=== PATIENT | female | born 1940 | race Hispanic/Latino ===

== ENCOUNTER 2017-02-15 20:44 | Inpatient (IN) | payer MEDICARE, MEDICAID ==
[2017-02-15 21:53] LABS: #Basophils 0.1 thou/uL (0.0-0.2); #Eosinphils 0.1 thou/uL (0.0-0.7); #Lymphocytes 1.3 thou/uL (1.20-3.40); #Monocytes 0.6 thou/uL (0.11-0.59); #Neutrophils 7.5 thou/uL (1.40-6.50); %Basophils 0.6 % (0.0-1.0); %Eosinophils 1.5 % (0.0-10.0); %Monocytes 6.1 % (0.0-10.0); Hematocrit 44.4 % (36.0-47.0); Mean Platelet Volume 6.4 fL (7.4-10.4); Red Blood Cell (RBC) Count 4.88 mill/uL (4.20-5.40); White Blood Cell (WBC) Count 9.6 thou/uL (4.8-10.8)
[2017-02-15 22:15] LABS: ALT (SGPT) 13 U/L (8-55); AST (SGOT) 19 U/L (5-34); Alkaline Phosphatase 85 U/L (40-150); Anion Gap 12 mmol/L (10-20); BUN (Urea Nitrogen) 18 mg/dL (9.8-20.1); Bilirubin, Total 0.5 mg/dL (0.2-1.2); Calc. Creatinine Clearance 0 mL/min (70-130); Calcium 9.4 mg/dL (7.8-10.44); Carbon Dioxide 28 mmol/L (23-31); Chloride 98 mmol/L (98-107); Estimated GFR-MDRD 66; Globulin 3.9 g/dL (2.4-3.5); Protein, Total 7.7 g/dL (6.0-8.3)
[2017-02-15] MEDS ORDERED: Adenosine 6 MG/2 ML VIAL ONE ×2 (22:18→22:24)
[2017-02-15 22:21] LABS: Troponin I 0.043 ng/mL (< 0.028)
[2017-02-15 23:04] LABS: Magnesium 2.8 mg/dL (1.6-2.6)
--- NOTE | 2017-02-15 23:06 | RAD ---
PORTABLE AP CHEST: Date: 02-15-17 History: Dyspnea. Patient fell out of bed. Patient reports shortness of breath. Comparison: 12-29-16 FINDINGS: Post-surgical changes related to CABG are noted. Cardiac silhouette is stable in size. Pulmonary vas culature is within normal limits. Lungs are clear. There is osteopenia. No obvious fracture is seen. Vascular calcification seen in the thoracic aorta. There has been no interval change from prior alonso dy. IMPRESSION: No acute cardiopulmonary process. POS: [facility]
[2017-02-16] MEDS ORDERED: Acetaminophen 325 MG TAB PO PRN (01:02)
[2017-02-16] MEDS ORDERED: Ondansetron HCl/PF 4 MG/2 ML Vial IVP PRN (01:02)
[2017-02-16] MEDS ORDERED: Ondansetron ODT 4 MG TAB SL PRN (01:02)
[2017-02-16 01:10] LABS: Troponin I 0.041 ng/mL (< 0.028)
[2017-02-16 04:47] VITALS: BMI 28.5
[2017-02-16 05:17] LABS: Troponin I 0.042 ng/mL (< 0.028)
[2017-02-16] MEDS: Lisinopril 2.5 MG TAB PO SCH (06:28)
[2017-02-16] MEDS ORDERED: Dextrose 5% in Water 1,000 ML IV PRN (07:44)
[2017-02-16] MEDS ORDERED: Dextrose 50% Abboject 50 ML SYRINGE IVP PRN (07:44)
[2017-02-16] MEDS: cloNIDine HCl 0.1 MG TAB PO PRN ×2 (08:01→21:56)
[2017-02-16] MEDS ORDERED: Aspirin 325 MG TAB PO SCH (09:00)
[2017-02-16] MEDS ORDERED: Fluticasone Propionate Nasal Spray 16 gm Bottle NASAL PRN (09:21)
--- NOTE | 2017-02-16 11:33 | CON ---
DATE OF CONSULTATION: 02/16/2017 HISTORY: The patient is a pleasant 76-year-old woman with a history of coronary bypass surgery who presents after she had a fall. The patient was seen in 2014. She underwent cardiac catheterization and was found to have severe three-vessel coronary artery disease. The patient subsequently underwent coronary bypass surgery x3. The patient states that she has been compliant with her medications. She was in her usual state of health when she fell. She did not lose consciousness. The patient presented to the emergency room and was noted be in a very rapid heart rate. The patient denied having any palpitations or chest discomfort. The patient denies having dyspnea on exertion, PND or orthopnea. The patient denies having any palpitations. PAST MEDICAL HISTORY: 1. Coronary artery disease. 2. Hypertension. 3. Diabetes mellitus. 4. Dyslipidemia. PAST SURGICAL HISTORY: Coronary bypass surgery, foot surgery, and hysterectomy. FAMILY HISTORY: Her father had a myocardial infarction. MEDICATIONS ON ADMISSION: Metformin 1000 b.i.d., metoprolol 25 b.i.d., lisinopril 2.5 daily, Lipitor 10 at bedtime, aspirin 325 daily, Norvasc 10 daily. SOCIAL HISTORY: The patient continues to abuse tobacco 1 pack per day. REVIEW OF SYSTEMS: Ten-point system otherwise unremarkable. No history of easy bruising or bleeding, bright red blood per rectum, hematuria, dysuria, constipation, diarrhea. The patient reports having myalgias. Ten point review of systems is unremarkable. PHYSICAL EXAMINATION: GENERAL: Obese woman in no acute distress. VITAL SIGNS: Blood pressure of 130/60. NECK: No jugular venous distention. LUNGS: Clear to auscultation. HEART: Regular rate and rhythm, normal S1, S2. ABDOMEN: Distended. EXTREMITIES: Showed trace edema. SKIN: Warm and dry. NEUROLOGIC: Nonfocal. VASCULAR: Radial pulses are 2+. LABORATORY RESULTS: White blood cell count 9.6, hemoglobin 14.5, hematocrit 44.4, platelets 324. Sodium is 134, potassium 3.9, chloride 98, bicarbonate 28 , BUN 18, creatinine 0.84, glucose 173, troponin 0.043. Her EKG revealed her to have supraventricular tachycardia, nonspecific ST abnormality. IMPRESSION: 1. Supraventricular tachycardia. 2. History of coronary bypass surgery. 3. Hypertension. 4. Diabetes mellitus. 5. Dyslipidemia. This patient presents with supraventricular tachycardia. She converted to normal sinus rhythm with IV Cardizem. The patient also reports having marked weakness from muscle discomfort. With the patient having myalgias I would discontinue her Lipitor. We will ask EP to evaluate. We will follow this patient with you through her hospitalization. DARSHANA
[2017-02-16] MEDS ORDERED: Regadenoson 0.4 MG/5 ML SYRINGE ONE (12:00)
[2017-02-16] MEDS ORDERED: Albuterol Sulfate 2.5 mg/3 ml Neb NEB PRN (17:53)
--- NOTE | 2017-02-16 17:59 | NM ---
NUCLEAR MEDICINE CARDIAC STRESS TEST WITH EJECTION FRACTION: HISTORY: Chest pain and arrhythmia. COMPARISON: None. TECHNIQUE: Stress and rest was performed after the intravenous administration of 29 and 9 mCi technetium-99m se stamibi intravenously, respectively. FINDINGS: There is a scar of the lateral wall. The contractility appears normal. No dyskinesia or akinesia. Th e ejection fraction is calculated at 52%. No evidence of reversible ischemia. IMPRESSION: 1. Lateral wall scar without reversible ischemia. 2. Ejection fraction 52%. POS: [facility]
[2017-02-16] MEDS: Insulin Regular 300 UNITS/3 ML VIAL SC PRN (18:07)
[2017-02-16] MEDS ORDERED: Atorvastatin Calcium 40 MG TAB PO SCH (21:00)
[2017-02-16] MEDS: Guaifenesin DM 100-10/5 ML UDCUP PO SCH (21:54)
[2017-02-16] MEDS: guaiFENesin ER 600 MG TAB PO SCH (21:54)
--- NOTE | 2017-02-17 00:40 | HP ---
DATE OF ADMISSION: 02/15/2017 REASON FOR CHIEF COMPLAINT: Status post fall. HISTORY OF PRESENT ILLNESS: Ms. Brar is a 76-year-old female with past medical histor y of coronary artery disease, status post CABG, hypertension and diabetes mellitus who lost balance and fell off the bed and sustained skin tears to the right forearm. No loss of consciousness, no ch est pain, no shortness of breath. The patient came to the emergency room because of this. She was evaluated and had SVT in the ER, which resolved, but came back again and resolved with Valsalva bhupinder uver. The patient also found to have an elevated blood pressure and she also complained of shortnes s of breath and uses an albuterol inhaler, which she left at home. Her troponin was indeterminate. The patient is being admitted because of her SVT. The patient did not have any palpitations. PAST MEDICAL HISTORY: 1. Coronary artery disease, status post CABG. 2. Hypertension. 3. Diabetes mellitus. 4. Hyperlipidemia. 5. Bronchial asthma. PAST SURGICAL HISTORY: Status post CABG, status post foot surgery, status post hysterectomy. CURRENT MEDICATIONS: The patient is on metformin 1000 b.i.d., metoprolol 25 b.i.d., lisinopril 2.5 mg daily, Lipitor 10 mg at bedtime, aspirin 325 mg daily, Norvasc 10 mg daily. ALLERGIES: NKDA. FAMILY HISTORY: Nothing of interest. SOCIAL HISTORY: Patient lives with her family. No history of alcohol intake. Smokes one pack a da y. REVIEW OF SYSTEMS: Cardiovascular: No chest pain. No shortness of breath. Respiratory: No fever or cough. Gastrointestinal: No nausea or vomiting. No abdominal pain. Genitourinary: No disten essence. Central Nervous System: No headache, no dizziness. PHYSICAL EXAMINATION: GENERAL: The patient is alert, awake and oriented x3. VITAL SIGNS: Temperature 98, pulse 83, respirations 24 and blood pressure 180/70. HEENT: Head is normocephalic, atraumatic. Pupils equal and reactive. Nasopharynx is pink and mois t. NECK: Supple. No JVD. LUNGS: Bilateral air entry. Breath sounds diminished bilaterally. Percussion is dull bilaterally. No rales. HEART: S1, S2 regular. ABDOMEN: Soft. No distention, no tenderness. Normal bowel sounds. RECTAL: Deferred. EXTREMITIES: Marked skin tear is present in the right forearm. CENTRAL NERVOUS SYSTEM: No focal deficits. LABORATORY AND X-RAY FINDINGS: CBC shows WBC 9.7, hemoglobin 14, hematocrit 44 and platelets 394. Metabolic panel: Sodium 134, potassium 3.9, chloride 98, CO2 of 28, urea nitrogen 18, creatinine 0. 9, glucose 117, CK-MB , troponin 0.043, magnesium level 2.8. Chest x-ray negative. EKG showed SVT with a heart rate of 150. No acute ST-T changes seen. ASSESSMENT: 1. Supraventricular tachycardia. 2. Status post fall. 3. Laceration in the right forearm. 4. Hypertension, uncontrolled. 5. Diabetes mellitus. 6. Coronary artery disease, status post coronary artery bypass grafting. PLAN: 1. Vital signs q.4 hours. 2. Activity: As tolerated. 3. Allergies: NKDA. 4. Hep-lock. 5. Diet: ADA cardiac. 6. CK-MB and troponin I q.8 hours x2. 7. Continue home medication. 8. Echocardiogram. 9. Cardiology consult. 10. Accu-Cheks a.c. and at bedtime. 11. Sliding scale mild with regular insulin. 12. Wound cleaning and dressing, right forearm.
--- NOTE | 2017-02-17 08:42 | PDOC.CTH ---
Cardiology Progress Note - Subjective No new issues or complaints. - Objective Vital Signs Temp Pulse Resp BP BP BP Pulse Ox 02/17/17 08:00 99.2 F 88 20 109/56 L 94 L 02/17/17 04:49 83 22 H 95 02/17/17 04:00 98.5 F 77 18 141/65 H 95 02/17/17 00:00 98.3 F 89 16 154/70 H 94 L 02/16/17 21:56 189/78 H 02/16/17 02/17/17 02/18/17 06:59 06:59 06:59 Intake Total 1135 Output Total 400 Balance 735 - Physical Examination General/Neuro: alert & oriented x3, NAD Neck: no JVD present Lungs: CTA, unlabored respirations Heart: RRR Abdomen: NT/ND Extremities: other: (no edema.) - Telemetry Telemetry Rhythm: NSR - Labs Result Diagrams: 02/15/17 21:45 02/15/17 21:45 Troponin/CKMB CK-MB (CK-2) 1.5 ng/mL (0-6.6) 02/15/17 21:45 Troponin I 0.042 ng/mL (< 0.028) H 02/16/17 04:09 - Assessment/Plan 1. SVT 2. Fall 3. CAD, s/p CABG in 2014 4. Non compliance PLAN: - EP evaluation for SVT - Normal EF on echo at 60-65% - Continue Aspirin, statin, ACEI. - Awaiting EP recs.
[2017-02-17] MEDS ORDERED: Loratadine 10 MG TAB PO SCH (09:00)
[2017-02-17] MEDS: Guaifenesin DM 100-10/5 ML UDCUP PO SCH ×3 (09:17→17:00)
[2017-02-17] MEDS: Lisinopril 2.5 MG TAB PO SCH (09:18)
[2017-02-17] MEDS: guaiFENesin ER 600 MG TAB PO SCH (09:18)
--- NOTE | 2017-02-17 09:26 | PRG ---
DATE OF SERVICE: 02/17/2017 SUBJECTIVE: Ms. Brar continues to do well. Her skin is being bandaged. She underwent a stres s test from yesterday with no evidence of ischemia noted, but a lateral wall scar is seen, EF is 52% . OBJECTIVE DATA: VITAL SIGNS: Blood pressure this morning is 109/56, heart rate 88, respirations 20, temperature 99. 2 degrees Fahrenheit. GENERAL: Alert, oriented, elderly woman in no apparent distress. NECK: Supple. Jugular veins not distended. CHEST: Coarse, no crackles. CARDIOVASCULAR: Heart sounds are regular to rate and rhythm. No murmur or gallop. ABDOMEN: Benign. Bowel sounds positive. EXTREMITIES: Lower extremities without edema, clubbing or cyanosis. DATABASE: The EKG is evaluated reveals sinus rhythm, 4-5 beats run of atrial arrhythmias, SVT is no jose juan only. ASSESSMENT AND PLAN: Ms. Brar is a 76-year-old woman with history of coronary artery disease a nd bypass surgery in the past, hypertension, diabetes, hyperlipidemia. She presented with slip and subsequent tear of her skin on her forearm, but also has episodes of dizzy spells according to her f amily. This is possibly explained by blood pressure fluctuation alone. Accidentally she was noted to be in SVT at rate of 150 beats per minute which responded to vagal maneuvers and diltiazem. I discussed the option of an ablation therapy for her, but she really prefers medical therapy to be tried first. I will switch her amlodipine to diltiazem. Her blood pressure is well controlled toda y. She has minimal recurrences. She remains stable. I had a discussion with the patient again and her family was present in the room today. We discussed again these options and also emphasized the importance of compliance with medication. If her dizzy spells worsen or she wishes to proceed with the ablation procedure we will make arrangements as an outpatient. I will see her back in 4-6 week s.
--- NOTE | 2017-02-17 10:42 | CON ---
DATE OF CONSULTATION: 02/16/2017 ELECTROPHYSIOLOGY CONSULTATION REPORT REFERRING PHYSICIAN: Dr. Misbah Sage HISTORY OF PRESENT ILLNESS: I am seeing Ms. 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 Her problems are: 1. Supraventricular tachyarrhythmia's. A. EKG documentation of narrow complex tachycardia at rates of 150 beats per minute on 02/15/2017, c onverted to sinus rhythm with IV Cardizem. 2. History of coronary artery disease status post coronary artery bypass grafting surgery in 2014. 3. 2D echo from 02/2017 reveals ejection fraction 60-65%, mild aortic stenosis and regurgitation, m ild tricuspid regurgitation noted, moderate concentric LVH seen. 4. Coronary artery risk factors including hypertension, diabetes, and hyperlipidemia. 5. History of bronchial asthma. ALLERGIES: None noted. MEDICATIONS: Metformin, metoprolol, lisinopril, Lipitor, aspirin, Norvasc. SUBJECTIVE: Ms. Brar presented actually after a slip and fall when she tore her skin on her fo rearm. She denies actually passing out spell associated with this event. She denies also chest javid ns, shortness of breath or palpitations. According to her family, there are episodes of dizzy spell s, which is not very well explained by blood pressure fluctuations alone. She was found to be in a rapid rhythm in the ER with EKG suggestive of SVT and Valsalva maneuver and diltiazem IV was given w hich terminated the arrhythmia. She had short recurrences since only. She was not markedly symptom atic with palpitations, but again she has home episodes of unexplained dizzy spells, but not full lo ss of consciousness spells. REVIEW OF SYSTEMS: Review of systems otherwise unremarkable with no history of bleeding, stroke-l malina symptoms, no fever, chills or cough. No PND or orthopnea, no fluid overload and again a 12-poin t review of systems unremarkable. PAST MEDICAL HISTORY: As above. PAST SURGICAL HISTORY: Significant for foot surgery, hysterectomy, and bypass surgery in the past. FAMILY HISTORY: Noncontributory. SOCIAL HISTORY: Patient lives with her family. No smoking, ETOH or drug abuse is noted. OBJECTIVE DATA: VITAL SIGNS: The blood pressure is 215/85, heart rate 86, respirations 18, temperature 98.3 degrees Fahrenheit, recheck blood pressure is 130/60. GENERAL: Alert and oriented elderly woman in no apparent distress. NECK: Supple. Jugular veins not distended. CHEST: Coarse without crackles. CARDIOVASCULAR: Heart sounds are regular rate and rhythm. A 1/6 systolic ejection murmur is heard at the aortic area, mid sternal scar is appreciated, well healed. ABDOMEN: Benign. Bowel sounds positive. EXTREMITIES: Lower extremities without edema, clubbing or cyanosis. Pulses are mildly diminished. SKIN: Without rash, but right forearm is in bandage at the site of the tear. DATABASE: EKG reviewed on 02/15/2017 revealing a narrow complex tachycardia with wave difficu lt to elicit. Subsequent EKGs reveal sinus rhythm, short run of supraventricular arrhythmias also s een. LABORATORY DATA: White count 9.6, hemoglobin 14.5, platelet count is 324. The troponin I was 0.04 and 0.04 consecutively. Sodium 134, potassium 3.9, BUN 18, creatinine 0.84. Magnesium 2.8. ASSESSMENT AND PLAN: Ms. Brar is a pleasant 76-year-old woman with prior history of coronary a rtery bypass grafting surgery, but preserved LV function noted on current exam. She presented with a forearm skin tear, but also was noted to be in a supraventricular tachycardia which responded to V alsalva maneuver/IV diltiazem. The etiology of the arrhythmia is unclear. I am suspecting AV sonia oriented tachycardia. I did ex plain the treatment options which could include continue diltiazem therapy versus EP study and ablat ion procedure. At this point, she would prefer medications. I am switching her amlodipine to dilti azem instead. I again discussed the benefits ablation as well, and we will consider it at a later stage. I will s ee her back as an outpatient. She is still undergoing a nuclear stress test evaluation as per Dr. Sage's order. Thank you for allowing me to participate in the care of this patient.
[2017-02-17 15:27] VITALS: BP 131/60; TEMP 97.9
[2017-02-17] MEDS: Insulin Regular 300 UNITS/3 ML VIAL SC PRN (17:00)
--- NOTE | 2017-02-21 12:00 | STRESS ---
Acquisition Time: 2017-02-16 12:48:54 Total Exercise Time: 00:01:00 Test Indications: CHEST PAIN Medications: Protocol: LEXISCAN Max HR: 100 BPM 69% of Pred: 144 BPM Max BP: 122/062 mmHG Max Work Load: 1.0 METS THE PATIENT WAS INJECTED WITH LEXISCAN. SHE DID NOT DEVELOP CHEST PAIN. THERE WAS NO SIGNIFICANT ST DEPRESSION. AWAIT NUCLEAR IMAGES FOR DEFINITIVE DIAGNOSIS. Confirmed by TYRONE LIM ([id number]), video effects editor GERBER CAMPBELL ([id number]) on 02/21/2017 11:59:38 AM Referred By: MD Cesar ADLER Confirmed By:TYRONE LIM
== END 2017-02-17 18:15 | disposition home or self-care (01) | DRG 310 ==
LOC: ERS 20:44 → 2SW 23:21 → OBSVTOIN 02-16 17:48 → 2NO 02-16 20:03
PROVIDERS: ADMIT Internal Medicine; ATTEND Internal Medicine
DX: I47.1 Supraventricular tachycardia (principal); Z95.1 Presence of aortocoronary bypass graft; E11.9 Type 2 diabetes mellitus without complications; I10 Essential (primary) hypertension; S51.811A Laceration without foreign body of right forearm, initial encounter; W06.XXXA Fall from bed, initial encounter; I25.10 Atherosclerotic heart disease of native coronary artery without angina pectoris; Z79.84 Long term (current) use of oral hypoglycemic drugs; E78.5 Hyperlipidemia, unspecified; E66.9 Obesity, unspecified; Z68.28 Body mass index [BMI] 28.0-28.9, adult; J45.909 Unspecified asthma, uncomplicated; J06.9 Acute upper respiratory infection, unspecified; Z91.19 Patient's noncompliance with other medical treatment and regimen
CPT/HCPCS: 36415; 36416; 71010; 78452; 80053; 82553; 83735; 84484; 85025; 93005; 93017; 93306; 94640; 96374; A4216; A9500; J0153; J1815; J2785; J7611; J7620

== ENCOUNTER 2017-12-14 11:51 | Emergency (ER) | payer MEDICARE, MEDICAID ==
[2017-12-14 12:45] LABS: Bilirubin Negative (Negative); Blood, Urine Negative (Negative); Clarity CLEAR (Clear); Glucose, Urine (Dipstick) Negative (Negative); Leukocyte Negative (Negative); Nitrite Negative (Negative); Protein, Urine (Dipstick) 100 mg/dL (Neg-Trace); Specific Gravity, Urine 1.007 (1.002-1.036); Urobilinogen 0.2 mg/dL (0.2-1.0)
[2017-12-14 12:47] LABS: Bacteria/HPF None Seen HPF (None Seen); Hyaline Casts/LPF 0-3 HYALINE CAST LPF (0-3 Hyaline); RBC/HPF 0-3 HPF (0-3); Squamous Epithelial None Seen HPF (0-3); WBC/HPF None Seen HPF (0-3)
== END 2017-12-14 13:15 | disposition home or self-care (01) ==
LOC: ERS 11:51
DX: R32 Unspecified urinary incontinence (principal); I25.2 Old myocardial infarction; I10 Essential (primary) hypertension; E11.9 Type 2 diabetes mellitus without complications; E78.00 Pure hypercholesterolemia, unspecified; F17.210 Nicotine dependence, cigarettes, uncomplicated; Z79.84 Long term (current) use of oral hypoglycemic drugs; Z79.899 Other long term (current) drug therapy
CPT/HCPCS: 51701; 81003; 81015; 87086; A4353

== ENCOUNTER 2018-04-02 07:22 | Emergency (ER) | payer MEDICARE, MEDICAID ==
[2018-04-02 07:50] LABS: Bilirubin Negative (Negative); Blood, Urine Negative (Negative); Clarity CLEAR (Clear); Glucose, Urine (Dipstick) Negative (Negative); Leukocyte Negative (Negative); Nitrite Negative (Negative); Protein, Urine (Dipstick) 100 mg/dL (Neg-Trace); Specific Gravity, Urine 1.011 (1.002-1.036); pH, Urine 7.5 (5.0-9.0)
[2018-04-02 07:51] LABS: Bacteria/HPF None Seen HPF (None Seen); Hyaline Casts/LPF 0-3 HYALINE CAST LPF (0-3 Hyaline); Pathc Cast-AUWi Flag 0.58 (0-2.49); Squamous Epithelial 0-3 HPF (0-3); WBC/HPF None Seen HPF (0-3)
[2018-04-02 08:25] LABS: #Basophils 0.1 thou/uL (0.0-0.2); #Lymphocytes 1.1 thou/uL (1.20-3.40); #Monocytes 0.6 thou/uL (0.11-0.59); %Basophils 0.5 % (0.0-1.0); %Eosinophils 0.2 % (0.0-10.0); %Lymphocytes 7.7 % (21.0-51.0); %Monocytes 4.1 % (0.0-10.0); %Neutrophils 87.5 % (42.0-75.0); Mean Corpuscular Hemoglobin 28.2 pg (27.0-31.0); Mean Corpuscular Volume 85.6 fL (78.0-98.0); Mean Platelet Volume 6.4 fL (7.4-10.4); Platelet Count 439 thou/uL (130-400); White Blood Cell (WBC) Count 13.7 thou/uL (4.8-10.8)
[2018-04-02 08:48] LABS: ALT (SGPT) 7 U/L (8-55); AST (SGOT) 9 U/L (5-34); Albumin 3.4 g/dL (3.4-4.8); Alkaline Phosphatase 83 U/L (40-150); Anion Gap 16 mmol/L (10-20); BUN (Urea Nitrogen) 15 mg/dL (9.8-20.1); Bilirubin, Total 0.7 mg/dL (0.2-1.2); Calc. Creatinine Clearance 0 mL/min (70-130); Calcium 9.2 mg/dL (7.8-10.44); Carbon Dioxide 20 mmol/L (23-31); Chloride 97 mmol/L (98-107); Estimated GFR-MDRD 80; Glucose 214 mg/dL (83-110); Protein, Total 7.4 g/dL (6.0-8.3); Sodium 129 mmol/L (136-145)
[2018-04-02] MEDS ORDERED: Ketorolac Tromethamine 30 MG/ML VIAL ONE (08:57)
--- NOTE | 2018-04-02 11:20 | CT ---
ABDOMEN AN DPELVIC CT SCAN WITHOUT IV CONTRAST: HISTORY: A 7-year-old female with left flank pain and dysuria. FINDINGS: On the tower control operator view, there is an approximately 2 cm diameter nodular mass in the right perihilar region which could represent a pulmonary mass. Followup chest x-ray in this regard is suggested. There is some minimal linear stranding in the right lower lobe, possibly some subsegmental atelectasi s or very mild pneumonitis. There are some dense calcific or ossific foci within the liver, more so in the right lobe and more so peripherally but stable from prior CT, 12/31/2016. The gallbladder appe ars unremarkable. Pancreas and spleen are unremarkable. Thee is a 2 cm diameter enlarged lymph node in the left periaortic region at the level of the left renal vein. There are some scattered smaller periaortic and retroperitoneal lymph nodes which are not enlarged. Bilateral renal hypodensities, s ome of which are definitely cysts and others are too small to characterize but bilateral renal cysts are favored. Bilateral renal vascular calcifications. No renal hydronephrosis. No obstructing calculus. Status post hysterectomy. Lumbar spondylosis with some L5 spondylolysis and some associated listhesis. IMPRESSION: Approximately 2 cm diameter nodule in the right lung right perihilar region seen only on the tower control operator vi ew. Additional imaging for further assessment would be of benefit. Minimal patchy parenchymal smith e in the right lower lobe, nonspecific, possibly some mild pneumonitis. A 2 cm diameter left periaor tic abnormally enlarged lymph node. No renal calculus or obstruction. Stable calcific foci withi n the liver. Bilateral renal hypodensities consistent with multiple cysts. Status post hysterectomy . Lumbar spine spondylolysis at L5 with some listhesis. No evidence for acute diverticulitis. Findings were discussed with Dr. Garza, particularly in regards to the enlarged lymph node and the right upper lobe pulmonary nodule seen on the tower control operator view only at 8:45 a.m. CODE CR POS: ISAÍAS
[2018-04-02 12:04] LABS: CKMB 0.9 ng/mL (0-6.6); Troponin I Less than 0.010 ng/mL (< 0.028)
== END 2018-04-02 16:09 ==
LOC: ERS 07:22
DX: M54.5 Low back pain (principal); R26.2 Difficulty in walking, not elsewhere classified; E78.5 Hyperlipidemia, unspecified; I25.2 Old myocardial infarction; E11.9 Type 2 diabetes mellitus without complications; J44.9 Chronic obstructive pulmonary disease, unspecified; I25.10 Atherosclerotic heart disease of native coronary artery without angina pectoris; F17.210 Nicotine dependence, cigarettes, uncomplicated; Z79.84 Long term (current) use of oral hypoglycemic drugs; Z79.899 Other long term (current) drug therapy
CPT/HCPCS: 36415; 51701; 74176; 80053; 81003; 81015; 82553; 84484; 85025; 93005; 96372; A4353; J1885

== ENCOUNTER 2018-05-19 08:13 | Outpatient (CLI) | payer MEDICARE, MEDICAID ==
--- NOTE | 2018-05-19 14:45 | PET ---
PET SCAN FROM SKULL BASE THROUGH THIGH: INDICATION: Pulmonary mass in the right upper lobe. RADIOPHARMACEUTICAL: 10.7 mCi F18-FDG IV administered. CT images were obtained from the skull base through the mid thighs for attenuation correction purposes only. Comparison made with prior CT of the chest dated 04/07/[address] of the abdomen and pelvis dated . FINDINGS: HEAD AND NECK: There is some mild increased activity seen involving the right palatine tonsil region and right pirif orm sinus, which may be related to inflammatory change; however, a focal malignancy is not excluded. No hypermetabolic lymphadenopathy is evident with the head/neck region. There is scattered vascular c alcification involving the head/neck vasculature. CHEST: There is a hypermetabolic right subclavicular node with a peak SUV uptake of 2.94 and a mean uptake o f 2.6. The node measures approximately 8.0 mm in size. There are numerous hypermetabolic lymph nodes within the superior mediastinum extending along the rig ht paratracheal region, precarinal, and bilateral tracheobronchial regions. No definite left hilar hy permetabolic lymphadenopathy is evident. There is a centrally necrotic subcarinal lymph node measurin g 2.5 cm with a peak SUV uptake of 4.5 and a mean uptake of 4. There is a large right hilar mass renae uring approximately 5.7 cm in size with a peak SUV uptake of 8.19 and a mean uptake of 7.62. There is a hypermetabolic precarinal lymph node present measuring 1.6 cm with a peak SUV uptake of 5.84 and a mean uptake of 5.30. There is a hypermetabolic right paratracheal lymph node measuring 1.6 cm with a peak uptake of 5.11 and mean uptake of 4.36. There is a nodular mass component that extends from the right hilar region within the right suprahilar region of the right upper lobe. The mass length on th e coronal images, including this suprahilar extension, measures approximately 8.3 cm. There is some r eticulonodularity within the right upper lobe which may be related to a bronchiolitis. The nodular de nsities are still pinpoint and may be below PET resolution threshold; therefore, lymphovascular sprea d of disease cannot be entirely excluded within the right upper lobe. No additional hypermetabolic pu lmonary lesion is identified. No hypermetabolic pleural effusion is noted. ABDOMEN/PELVIS: There is a hypermetabolic mass involving the left adrenal gland measuring 1.8 cm with a peak SUV upta ke of 4.55 and a mean uptake of 4.11. No additional hypermetabolic lesion is demonstrated involving t he adrenal glands. There is a hypermetabolic lymph node seen within the periaortic region measuring 1.7 cm with a peak S UV uptake of 6.1 and a mean uptake of 5.09. No additional hypermetabolic lymphadenopathy is evident. There is prominent and hypermetabolic activity seen at the level of the rectum with a peak SUV uptake of 6.3 and a mean uptake of 6.23. Similar appearing activity is seen at the level of the anus with p eak SUV uptake of 7.48 and mean uptake of 6.59. The excretory activity is slightly misregistered with in the lower pelvis. There is surrounding metabolic activity involving the bowel and liver, as well a s the renal collecting system. There are small cysts involving the left kidney. There is one large cy st involving the left kidney measuring 5.9 cm. There are prominent vascular calcifications. No hypermetabolic bone lesion is identified. There is Grade I anterolisthesis of L5 over S1 due to bi lateral pars defects. There is a inferior end plate compression abnormality of L3, which demonstrates some mild increased metabolic uptake. This was present on the comparison dated 04/02/18 and likely r eflects a subacute end plate fracture of L3. IMPRESSION: Abnormal PET scan: 1. Large hypermetabolic right hilar and suprahilar mass consistent with malignancy. There is reticul onodularity seen within the right upper lobe which could be related to areas of bronchiolitis from pe ripheral airway disease related to obstructive physiology of the mass; however, lymphangitic spread o f tumor cannot be entirely excluded. There is extensive hypermetabolic lymphadenopathy involving the right hilar region, subcarinal region, left mainstem peribronchial region, right paratracheal region, superior mediastinum, and right subclavicular region. There is also hypermetabolic lymph node seen w ithin the upper abdomen in periaortic region. There is hypermetabolic metastatic lesion to left adren al gland. 2. There is hypermetabolic activity seen at the lower rectum and anus. This could be related to excr etory activity or bowel activity. Would recommend correlation with patient's recent colonoscopy. A ma lignancy within this location cannot be entirely excluded. 3. Mild activity seen within the region of the right palatine tonsil, as well as right piriform sinu s, may be related to an upper respiratory tract infection and inflammation. Recommend correlation wit h direct visualization. 4. Subacute appearing inferior subchondral end plate fracture of L3 with mild associated activity. N o definite osseous metastatic disease demonstrated. POS: [facility]
== END 2018-05-19 08:14 | disposition home or self-care (01) ==
LOC: PET 08:13
PROVIDERS: ATTEND Internal Medicine
DX: R91.8 Other nonspecific abnormal finding of lung field (principal); R59.0 Localized enlarged lymph nodes
CPT/HCPCS: 78815; A9552

== ENCOUNTER 2018-06-01 07:25 | Day surgery (SDC) | payer MEDICARE, MEDICAID ==
[2018-05-31 10:29] VITALS: BMI 25.2
[2018-06-01 07:47] LABS: #Basophils 0.1 thou/uL (0.0-0.2); #Eosinphils 0.1 thou/uL (0.0-0.7); #Lymphocytes 2.2 thou/uL (1.20-3.40); #Monocytes 0.5 thou/uL (0.11-0.59); #Neutrophils 6.1 thou/uL (1.40-6.50); %Basophils 0.8 % (0.0-1.0); %Eosinophils 1.3 % (0.0-10.0); %Lymphocytes 24.3 % (21.0-51.0); %Monocytes 5.8 % (0.0-10.0); %Neutrophils 67.9 % (42.0-75.0); Hemoglobin 11.7 g/dL (12.0-16.0); Mean Corpuscular HGB CONC 31.6 g/dL (32.0-36.0); Mean Corpuscular Hemoglobin 27.3 pg (27.0-31.0); Mean Corpuscular Volume 86.6 fL (78.0-98.0); Mean Platelet Volume 5.9 fL (7.4-10.4); Platelet Count 547 thou/uL (130-400); RBC Distribution Width 13.7 % (11.5-14.5)
[2018-06-01 07:52] LABS: PTT 30.5 SEC (22.9-36.1); Prothrombin Time 13.4 SEC (12.0-14.7)
[2018-06-01 08:52] VITALS: BP 167/70; TEMP 97.6
--- NOTE | 2018-06-01 13:47 | CT ---
CT GUIDED LEFT ADRENAL MASS BIOPSY: Date: 06/01/18 HISTORY: Lung mass. Adrenal mass. FINDINGS: After explaining the procedure and answering all questions, limited CT imaging was performed. A left posterior approach was planned. Sterile technique, buffered local anesthesia, CT guidance, and a left posterior approach were used to carefully advance a 19 gauge trocar needle to the level of the left adrenal mass, carefully passing between the superior pole of the left kidney and the aorta. Position was confirmed with CT. Multiple 20ga core biopsy specimens were obtained and submitted to Dr. Bradford monique pathology for evaluation. Specimen adequacy was confirmed. Needle was removed. No evidence of com plication. The patient tolerated the procedure well and was monitored in the holding area and eventua lly discharged in good condition. 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 IMPRESSION: Technically successful CT guided left adrenal mass biopsy. Pathology is pending. POS: ISAÍAS
== END 2018-06-01 11:55 | disposition home or self-care (01) ==
LOC: CT 07:25
PROVIDERS: ATTEND Internal Medicine
PROC: 0GB23ZX Excision of Left Adrenal Gland, Percutaneous Approach, Diagnostic (ICD-10-PCS; principal; 2018-06-01)
DX: C79.72 Secondary malignant neoplasm of left adrenal gland (principal); I25.10 Atherosclerotic heart disease of native coronary artery without angina pectoris; E11.9 Type 2 diabetes mellitus without complications; E78.5 Hyperlipidemia, unspecified; I10 Essential (primary) hypertension; J44.9 Chronic obstructive pulmonary disease, unspecified; Z87.891 Personal history of nicotine dependence; Z79.84 Long term (current) use of oral hypoglycemic drugs; Z79.899 Other long term (current) drug therapy; Z95.1 Presence of aortocoronary bypass graft
CPT/HCPCS: 49180; 77012; 85025; 85610; 85730; 88305; 88333; 88334; 88341; 88342

== ENCOUNTER 2018-06-20 19:23 | Observation (INO) | payer MEDICARE, MEDICAID ==
[2018-06-20] MEDS ORDERED: Aspirin Chewable 81 MG TAB ONE (20:31)
[2018-06-20] MEDS ORDERED: methylPREDNISolone Sod Succ/PF 125 MG/2 ML VIAL ONE (20:31)
[2018-06-20 20:32] LABS: #Basophils 0.1 thou/uL (0.0-0.2); #Eosinphils 0.1 thou/uL (0.0-0.7); #Lymphocytes 1.5 thou/uL (1.20-3.40); #Monocytes 0.4 thou/uL (0.11-0.59); %Basophils 0.9 % (0.0-1.0); %Eosinophils 0.6 % (0.0-10.0); %Lymphocytes 18.4 % (21.0-51.0); %Monocytes 4.9 % (0.0-10.0); %Neutrophils 75.2 % (42.0-75.0); Hemoglobin 11.2 g/dL (12.0-16.0); Mean Corpuscular HGB CONC 31.3 g/dL (32.0-36.0); Mean Corpuscular Hemoglobin 27.8 pg (27.0-31.0); Mean Corpuscular Volume 88.9 fL (78.0-98.0); Mean Platelet Volume 6.4 fL (7.4-10.4); Platelet Count 474 thou/uL (130-400); RBC Distribution Width 13.7 % (11.5-14.5); Red Blood Cell (RBC) Count 4.01 mill/uL (4.20-5.40); White Blood Cell (WBC) Count 7.9 thou/uL (4.8-10.8)
--- NOTE | 2018-06-20 20:33 | RAD ---
PORTABLE CHEST: HISTORY: Heart palpitations. COMPARISON: 04/05/2018 FINDINGS: Heart size is within normal limits. There are atherosclerotic changes of the aorta with postop noguera otomy changes. A right hilar mass density is again noted. Given differences in technique, it is pro bably relatively stable. No infiltrative process. IMPRESSION: 1. Right hilar mass. 2. Chronic lung change. 3. No acute process. POS: [facility]
[2018-06-20 21:18] LABS: ALT (SGPT) 8 U/L (8-55); AST (SGOT) 14 U/L (5-34); Albumin 3.3 g/dL (3.4-4.8); Alkaline Phosphatase 94 U/L (40-150); Anion Gap 14 mmol/L (10-20); BUN (Urea Nitrogen) 26 mg/dL (9.8-20.1); Bilirubin, Total 0.3 mg/dL (0.2-1.2); Calc. Creatinine Clearance 0 mL/min (70-130); Calcium 9.1 mg/dL (7.8-10.44); Carbon Dioxide 21 mmol/L (23-31); Chloride 102 mmol/L (98-107); Estimated GFR-MDRD 73; Globulin 4.1 g/dL (2.4-3.5); Glucose 219 mg/dL (83-110); Potassium 3.7 mmol/L (3.5-5.1); Protein, Total 7.4 g/dL (6.0-8.3); Sodium 133 mmol/L (136-145)
[2018-06-20 21:34] LABS: CKMB 1.5 ng/mL (0-6.6)
[2018-06-21 00:12] LABS: Troponin I 0.121 ng/mL (< 0.028)
[2018-06-21] MEDS ORDERED: HYDROcodone/Acetaminophen 5/325 mg Tablet PO PRN (01:32)
[2018-06-21 03:37] LABS: Cardiac Risk 3.5 (Less than 4.5); Troponin I 0.135 ng/mL (< 0.028)
--- NOTE | 2018-06-21 05:43 | HP ---
CHIEF COMPLAINT: Chest pain. HISTORY OF PRESENT ILLNESS: She is a 77-year-old woman with history of hypertension, diabetes, recent diagnosis of lung cancer, right hilar mass, and CAD status post bypass. She presented to the ER with history of chest pain started today, chest pain she has had in the retrosternal area, dull ache to sharp, radiating to left arm, lasted for 1 hour with diaphoresis, no nausea, no vomiting, no short of breath. She came to the ER, her vital signs are; pulse 82, blood pressure 120/80, respiratory rate 20, temperature 98.6. In the ER, she was given aspirin and nebulizer. PAST MEDICAL HISTORY: 1. Hypertension. 2. Hyperlipidemia. 3. Diabetes. 4. COPD. FAMILY HISTORY: Noncontributory. MEDICATIONS: Medicines taking at home; 1. Metformin 1000 b.i.d. 2. Metoprolol 25 b.i.d. 3. Lisinopril 10 mg daily. 4. Diltiazem 180 daily. 5. Lipitor 10. 6. Albuterol sulfate two puffs. ALLERGIES: SHE HAS NO ALLERGY TO MEDICATION. PERSONAL HISTORY: She is an ex-smoker, stopped smoking so many years ago. Denies drug use. No alcohol use. FAMILY HISTORY: Noncontributory. REVIEW OF SYSTEMS: CONSTITUTIONAL: No fever. No chills. She has malaise and generalized weakness. EYES: No diplopia. No blurry vision. EAR, NOSE, AND THROAT: No epistaxis. No discharge from the ear and nose. CARDIOVASCULAR: She does have chest pain. No PND. No orthopnea. No palpitation. RESPIRATORY: No cough. No shortness of breath. No wheezing. ABDOMEN: No nausea. No vomiting. No hematemesis or melena. MUSCULOSKELETAL: No joint pain. HEMATOLOGIC/LYMPHATIC: No lymphadenopathy. No clotting disorder or any bleeding. No early bruising noted. SKIN: No rash. : No urinary symptoms noted. PHYSICAL EXAMINATION: GENERAL: She is an elderly woman, lying in the bed, no distress. VITAL SIGNS: Pulse 80 to 85, blood pressure 140/80, respiratory rate 20, and temperature 98.8. HEENT: Head is atraumatic and normocephalic. Pupils are round and reactive. Ears, nose and throat, normal. Tongue, mucosa moist. NECK: Supple. No JVD. CHEST: Normal vesicular breathing. No added sounds. No chest wall tenderness. CVS: S1 and S2 are audible. No S3 or S4. ABDOMEN: Soft, bowel sounds are audible. EXTREMITIES: No pedal edema. LABORATORY DATA: labs showed sodium 133, potassium 3.7, chloride 102, carbon dioxide 21, anion gap of 14, BUN 26, creatinine 0.7, glucose 219, troponin 0.037 , second 0.121. AST 14 and ALT 18. Albumin 3.3, globulin 4.1, WBC 7.1, hemoglobin 11.2, hematocrit 35.7, and platelets 474. DIAGNOSTIC STUDIES: Chest x-ray shows right hilar mass, chronic lung changes, no acute process. ASSESSMENT: 1. Chest pain, unstable angina, elevated troponin, acute coronary syndrome, aspirin, serial troponin, cardiology consulted, echocardiogram, nitroglycerine p.r.n., beta samanta, lisinopril, and statin. 2. Hypoxia with history of right hilar mass, lung cancer stage 4, as per family , the patient does not want any intervention done. 3. Deep venous thrombosis prophylaxis, Lovenox. The patient is DNR. Job ID: [id number] [facility]
[2018-06-21] MEDS ORDERED: HYDROcodone/Acetaminophen 5/325 mg Tablet ONE (06:11)
[2018-06-21 08:18] VITALS: BMI 27.1
[2018-06-21 08:56] LABS: #Lymphocytes 0.9 thou/uL (1.20-3.40); #Monocytes 0.1 thou/uL (0.11-0.59); #Neutrophils 6.1 thou/uL (1.40-6.50); %Basophils 0.5 % (0.0-1.0); %Eosinophils 0.1 % (0.0-10.0); %Lymphocytes 12.7 % (21.0-51.0); %Monocytes 1.5 % (0.0-10.0); %Neutrophils 85.2 % (42.0-75.0); Hemoglobin 10.9 g/dL (12.0-16.0); Mean Corpuscular HGB CONC 31.7 g/dL (32.0-36.0); Mean Corpuscular Hemoglobin 27.6 pg (27.0-31.0); Mean Corpuscular Volume 87.1 fL (78.0-98.0); Platelet Count 495 thou/uL (130-400); RBC Distribution Width 13.6 % (11.5-14.5); Red Blood Cell (RBC) Count 3.94 mill/uL (4.20-5.40); White Blood Cell (WBC) Count 7.1 thou/uL (4.8-10.8)
[2018-06-21] MEDS ORDERED: Enoxaparin Sodium 60 MG/0.6 ML SYRINGE SC SCH (09:00)
[2018-06-21] MEDS ORDERED: Aspirin 325 MG TAB PO SCH (09:00)
[2018-06-21] MEDS: Lisinopril 10 MG TAB PO SCH ×2 (09:00→13:03)
[2018-06-21] MEDS ORDERED: Metoprolol Tartrate 25 MG TAB PO SCH ×2 (09:00)
[2018-06-21 09:22] LABS: ALT (SGPT) 9 U/L (8-55); AST (SGOT) 11 U/L (5-34); Albumin 3.4 g/dL (3.4-4.8); Alkaline Phosphatase 96 U/L (40-150); Anion Gap 11 mmol/L (10-20); BUN (Urea Nitrogen) 22 mg/dL (9.8-20.1); Bilirubin, Total 0.3 mg/dL (0.2-1.2); Calc. Creatinine Clearance 67 mL/min (70-130); Calcium 9.2 mg/dL (7.8-10.44); Carbon Dioxide 21 mmol/L (23-31); Chloride 101 mmol/L (98-107); Estimated GFR-MDRD 76; Glucose 327 mg/dL (83-110); Potassium 4.2 mmol/L (3.5-5.1); Protein, Total 7.4 g/dL (6.0-8.3); Sodium 129 mmol/L (136-145)
[2018-06-21] MEDS ORDERED: Milk Of Magnesia 30 ML UDCUP PO PRN (10:17)
[2018-06-21] MEDS ORDERED: Enoxaparin Sodium 60 MG/0.6 ML SYRINGE ONE (12:53)
[2018-06-21] MEDS ORDERED: Metoprolol Tartrate 25 MG TAB ONE (12:53)
[2018-06-21] MEDS ORDERED: Aspirin 325 MG TAB ONE ×2 (12:53→15:59)
--- NOTE | 2018-06-21 12:57 | PDOC.PN ---
- Subjective Encounter Start Date: 06/21/18 Encounter Start Time: 09:00 Subjective: Patient examined, resting quietly in ED -: Reports SOB, denies current chest pain, reports some yesterday - Objective Resuscitation Status - Order Detail: 06/21/18 01:32 Resuscitation Status Routine Resuscitation Status: DNAR: NO Resuscitation Discussed with: patient Vital Signs & Weight: Vital Signs (12 hours) Temp Pulse Resp BP Pulse Ox 06/21/18 11:07 98.0 F 88 30 H 167/95 H 100 06/21/18 08:17 97.8 F 86 29 H 182/86 H 97 06/21/18 07:30 87 34 H 173/87 H 95 Weight Weight 67.132 kg Result Diagrams: 06/21/18 08:49 06/21/18 08:49 Phys Exam - Physical Examination HEENT: PERRLA, moist MMs Neck: no nodes Respiratory: wheezing present rhonchi, decreased in bases Cardiovascular: RRR, no significant murmur Gastrointestinal: soft, non-tender Musculoskeletal: no edema, pulses present Neurological: non-focal, normal sensation, moves all 4 limbs Lymphatic: no nodes Psychiatric: normal affect, A&O x 3 Skin: normal turgor, cap refill <2 seconds Dx/Plan (1) Dyspnea Code(s): R06.00 - DYSPNEA, UNSPECIFIED Status: Acute (2) Chest pain Code(s): R07.9 - CHEST PAIN, UNSPECIFIED Status: Acute (3) Cancer Code(s): C80.1 - MALIGNANT (PRIMARY) NEOPLASM, UNSPECIFIED Status: Chronic (4) Diabetes Code(s): E11.9 - TYPE 2 DIABETES MELLITUS WITHOUT COMPLICATIONS Status: Chronic (5) HTN (hypertension) Code(s): I10 - ESSENTIAL (PRIMARY) HYPERTENSION Status: Chronic - Plan Trops trending up, 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
[2018-06-21 13:02] VITALS: TEMP 98.6
[2018-06-21 14:28] VITALS: BP 171/87
[2018-06-21] MEDS ORDERED: Nitroglycerin 0.4 MG TAB 1 EACH ONE (16:02)
--- NOTE | 2018-06-21 20:52 | CON ---
DATE OF CONSULTATION: 06/21/2018 REASON FOR CONSULTATION: Chest pain. HISTORY OF PRESENT ILLNESS: Ms. Brar is a very pleasant 77-year-old white female, who comes to the hospital for chest pain. She was recently diagnosed with lung cancer with a right hilar mass. She has a history of coronary artery disease with bypass surgery in the recent past. She comes in with chest pain in retrosternal area, dull ache, sharp, sometimes radiating to the left arm, lasting about an hour in time with a little diaphoresis, but no nausea or vomiting. She is stable. She is pain free at the time of my evaluation. PAST MEDICAL HISTORY: 1. Hypertension. 2. Hyperlipidemia. 3. Type 2 diabetes. 4. COPD. 5. Coronary artery disease as above. 6. History of supraventricular tachyarrhythmias. 7. Recent diagnosis of lung cancer. PAST SURGICAL HISTORY: 1. CABG in [address] Waldrop. 2. Partial hysterectomy. 3. Foot surgery. ALLERGIES: NO KNOWN DRUG ALLERGIES. OUTPATIENT MEDICATIONS: Include; 1. DuoNeb. 2. Aspirin 81 a day. 3. Albuterol inhaler. 4. Amlodipine 10 mg a day. 5. Lisinopril 10 mg a day. 6. Metformin 1000 mg b.i.d. 7. Metoprolol 25 mg b.i.d. 8. Loratadine. 9. Diltiazem 180 mg a day. 10. Atorvastatin 10 mg at bedtime. SOCIAL HISTORY: Former smoker, stopped few years ago after bypass. No drug use. No alcohol use. FAMILY HISTORY: No early coronary artery disease. REVIEW OF SYSTEMS: A 12-point review of systems was done and was found to be negative unless stated in the history of present illness. PHYSICAL EXAMINATION: VITAL SIGNS: Temperature 98.6, pulse 91, respiratory rate 26, saturating 96% on room air, and blood pressure 148/76. GENERAL: Awake, alert, and oriented x3. No distress. HEENT: Normocephalic and atraumatic. NECK: Supple. LUNGS: Clear. CARDIOVASCULAR: S1 and S2. No S3 or S4. No murmurs. ABDOMEN: Soft. Positive bowel sounds. EXTREMITIES: No edema. SKIN: Warm and dry. LABORATORY DATA: Reviewed. CBC with a white count of 7.9, hemoglobin of 11.2, hematocrit of 35, and platelet count of 474. Chemistry unremarkable except for sodium of 133, BUN and creatinine normal with GFR of 73. Troponins were 0.03, 0.12, and 0.13. Albumin of 3.3. LDL of 100 and HDL of 45. EKG was reviewed. Chest x-ray was reviewed. ASSESSMENT AND PLAN: 1. Chest pain. Concern for angina at this time. Ms. Brar does not want any further interventions, does not want any stress testing, does not want any heart catheterization. She wants medications to be left alone. I think this is reasonable. We will plan on treating her medically. She would also like to go home today as she feels her time is rosalio given her diagnosis of lung cancer stage IV. 2. We will plan on adding Plavix 75 mg a day to her regimen and will add Imdur 30 mg a day for antianginal. Hopefully, this will make her feel better. 3. We also spoke with her about the possibility of doing further risk stratification if she were to change her mind. We are glad to help her at that time. Currently, she continues to want conservative therapy. 4. Echocardiogram was reviewed and her LV function is normal at 50% to 55% with grade 1 diastolic dysfunction and no major regional wall motion abnormality. We will discharge home. We will follow up in the office in 1 month. We will sign off. Please call with any questions. Job ID: [id number]
--- NOTE | 2018-06-21 23:21 | DIS ---
DATE OF ADMISSION: 06/20/2018 DATE OF DISCHARGE: 06/21/2018 PRIMARY CARE PHYSICIAN: Jose Alfredo Hoyt MD CONSULTANTS: Dr. Billingsley, Cardiology. PROCEDURES: 1. The patient had a chest x-ray that showed a right hilar mass, chronic lung change, no acute process. 2. The patient had an echocardiogram, showed an ejection fraction visually estimated at 50% to 55%, grade 1/3 diastolic dysfunction, mild mitral regurgitation, mild annular calcification, aortic valve sclerosis but opens well, moderate aortic regurgitation, mildly dilated left atrium, mild tricuspid regurgitation, elevated right ventricular systolic pressure estimated at 41 mmHg. HOSPITAL COURSE: Ms. Brar is a 77-year-old female, who was admitted through the emergency room for chest pain. She reports chest pain in the retrosternal area, dull ache to sharp, radiating to left arm, lasted about an hour with some diaphoresis. No nausea. No vomiting. No shortness of breath. When she initially came to the emergency room, her vital signs, pulse of 82, blood pressure 120/80, respiratory rate was 20. Normal temp. She was given an aspirin and a nebulizer. The patient does have a history of hypertension, diabetes, recent diagnosis of lung cancer with metastases, has a right hilar mass, coronary artery disease status post bypass. She was admitted to the observation unit for further management. Cardiology was consulted. Dr. Billingsley saw the patient while she was still staying in the emergency room, waiting for a bed. He reviewed the echocardiogram. He saw the patient, decided after discussion that Ms. Brar could go home. He left prescription for her for Imdur and Plavix, which we have added to her home medication list. The patient was anxious to return home, so patient was discharged from the emergency room. The patient was seen this morning, reports that her chest pain had resolved with short of breath but not any worse than she had been since being diagnosed with cancer. CODE STATUS: DNAR. ALLERGIES: NONE. DISCHARGE DIAGNOSES: 1. Chest pain, unstable angina, acute coronary syndrome. 2. Hypoxia. 3. Right hilar mass with metastases. REVIEW OF SYSTEMS: The patient was examined. Denies any fevers or chills. Reports chest pain had resolved. Reports mildly short of breath. Denies any abdominal pain, nausea, or vomiting. All other systems reviewed and negative unless mentioned in the hospital course. PHYSICAL EXAMINATION: VITAL SIGNS: Blood pressure 178/86, pulse is 90, respirations 28, and temp is 97.7. CONSTITUTIONAL: The patient is nontoxic appearing. HEENT: Head is atraumatic and normocephalic. Eyes; extraocular muscles are intact. Conjunctivae, normal. ENT; mouth exam is normal, missing some teeth. Mucous membranes are moist. NECK: Normal range of motion. Trachea is midline. RESPIRATORY/CHEST: Decreased breath sounds at the bases and scattered rhonchi. CARDIOVASCULAR: Heart rate is regular with normal rate and rhythm. Heart sounds are normal. ABDOMEN: Nontender, soft. Bowel sounds are heard. BACK: Normal range of motion. EXTREMITIES: Upper extremity normal range of motion. Motor strength is normal. Pulses are equal bilaterally. Lower extremity normal range of motion. Motor strength is normal. Pedal pulses are equal bilaterally. No edema is noted. NEUROLOGIC: The patient is alert and oriented to person, place, and time. Speech is normal. SKIN: Warm and dry. Normal in color. HOME MEDICATIONS: Will be restarted. 1. ProAir HFA 2 puffs q.4 hours as needed. 2. Norvasc 10 mg p.o. daily. 3. Aspirin 81 mg p.o. daily. 4. Diltiazem mg p.o. daily. 5. DuoNeb 3 mL t.i.d. as needed. 6. Lisinopril 10 mg p.o. daily. 7. Claritin 10 mg p.o. daily. 8. Metformin 1000 mg p.o. b.i.d. 9. Lipitor 10 mg p.o. at bedtime. 10. Lopressor 25 mg p.o. b.i.d. New on this admissions: 1. Plavix 75 mg p.o. daily. 2. Imdur 30 mg p.o. daily. CONDITION: Stable. The patient will be discharged to home. The patient should follow up with Dr. Hoyt in 1 week. She should follow up with Dr. Billingsley in the next 2 to 3 weeks. Job ID: [id number]
[2018-06-22] MEDS ORDERED: Clopidogrel Bisulfate 75 MG TAB PO SCH (09:00)
== END 2018-06-21 16:21 | disposition home or self-care (01) ==
LOC: ERS 19:23 → ERHOLD 22:17
PROVIDERS: ADMIT Family Medicine; ATTEND Family Medicine
DX: I25.110 Atherosclerotic heart disease of native coronary artery with unstable angina pectoris (principal); I24.9 Acute ischemic heart disease, unspecified; C34.91 Malignant neoplasm of unspecified part of right bronchus or lung; C79.9 Secondary malignant neoplasm of unspecified site; I10 Essential (primary) hypertension; E11.9 Type 2 diabetes mellitus without complications; E78.5 Hyperlipidemia, unspecified; J44.9 Chronic obstructive pulmonary disease, unspecified; R06.00 Dyspnea, unspecified; I08.0 Rheumatic disorders of both mitral and aortic valves; Z87.891 Personal history of nicotine dependence; Z66 Do not resuscitate; Z79.82 Long term (current) use of aspirin; Z79.84 Long term (current) use of oral hypoglycemic drugs; Z79.899 Other long term (current) drug therapy; Z95.1 Presence of aortocoronary bypass graft
CPT/HCPCS: 71045; 80053 ×2; 80061; 82553; 84484 ×3; 85025 ×2; 93005; 93306; 94640 ×2; 96372; 96374; 99285; G0378; 36415; J1650; J2930; J7620